=== PATIENT | male | born 1985 | race African-American/Black ===

== ENCOUNTER 2024-06-21 17:56 | Emergency (ER) | payer SELFPAY ==
[~2024-06-21] VITALS: Ht 172.7 cm; Wt 82.0 kg
[2024-06-21 18:02] VITALS: TEMP 36.6; O2SAT 100
[2024-06-21] MEDS: KETOROLAC 15MG/ML VIAL IM ONE (21:00)
[2024-06-21] MEDS ORDERED: LIDO700A15 TP (23:51)
[2024-06-21] MEDS ORDERED: NAPR-1176 MT (23:51)
[2024-06-22] MEDS: KETOROLAC 15MG/ML VIAL IM NR (01:23)
[2024-06-22 01:25] VITALS: BP 95/50; PULSE 73; RESP 13; O2SAT 98
[2024-06-22] MEDS: LIDOCAINE 5% PATCH TOP SCH (01:25)
== END 2024-06-22 01:45 | disposition home or self-care (01) ==
LOC: ER 18:06
DX: M25.511 Pain in right shoulder (principal); M54.2 Cervicalgia; M54.9 Dorsalgia, unspecified; Z79.1 Long term (current) use of non-steroidal anti-inflammatories (NSAID); V43.52XA Car driver injured in collision with other type car in traffic accident, initial encounter; Y93.89 Activity, other specified; Y92.89 Other specified places as the place of occurrence of the external cause; Y99.8 Other external cause status
CPT/HCPCS: 73030; 99283; 96372; J1885; Z7610